=== PATIENT | female | born 1985 | race Caucasian/White ===

== ENCOUNTER 2020-04-09 16:44 | Outpatient (REF) | payer BC, SELFPAY | END 2020-04-09 16:45 | disposition home or self-care (01) | LOC: HO.LAB 16:44 | PROVIDERS: Visit Provider Internal Medicine | DX: Z20.822 Contact with and (suspected) exposure to COVID-19 (principal) | CPT/HCPCS: 36415; C9803; U0003 ==

== ENCOUNTER 2022-10-25 14:48 | Emergency (ER) | payer BC, SELFPAY ==
[2022-10-25] VITALS (8 sets, daily range): BP systolic 107–146; BP diastolic 66–82; PULSE 87–122; RESP 14–18; TEMP 36.4–36.8; O2SAT 95–99; BMI 30.5
--- NOTE | ~2022-10-25 | CT_ITS ---
EXAMINATION: CT HEAD WITHOUT CONTRAST (STROKE PROTOCOL) CLINICAL INFORMATION: Stroke protocol. Left-sided neck pain, dizziness, headache COMPARISON: None available. TECHNIQUE: Contiguous axial imaging was performed from the skull base to vertex without intravenous administration of contrast. This CT examination was performed using dose optimization techniques as appropriate, variously including the following: *Automated exposure control *Adjustment of mA and/or kV according to patient size (this includes techniques or standardized protocols for targeted exams where dose is matched to indication/reason for exam; i.e. extremities or head) *Use of iterative reconstruction technique DLP: 647 mGy-cm FINDINGS: No intracranial hemorrhage, extra-axial fluid collection, or midline shift is identified. [place]-white matter differentiation is preserved. The ventricles are within normal limits. Basal cisterns are within normal limits. Paranasal sinuses are clear. Mastoid air cells and middle ear cavities are clear. No acute calvarial fractures. CT/CT head for stroke IMPRESSION: No acute intracranial pathology. This critical result was discussed with Dr. Godfrey at 1543 hours on 10/25/2022. It was ascertained that the content and urgency of the report was understood at the time of direct communication.
--- NOTE | ~2022-10-25 | CT_ITS ---
EXAMINATION: CT ANGIOGRAM HEAD CT ANGIOGRAM NECK CLINICAL INFORMATION: Left-sided neck pain. Dizziness. Headache. COMPARISON: CT head from 10/25/2022. TECHNIQUE: Initial noncontrast farm marketer imaging of the head and neck was performed. Comparison is made with noncontrast head CT from earlier today. Test bolus sequences followed by intravenous administration 70 mL of Omnipaque 350. Helical imaging was performed in the axial plane from the aortic arch to the skull vertex. Delayed postcontrast imaging of the head was also performed. The data was processed at the electro mechanical technologist's workstation for generation of MIP sequences. Angled MIPs and volume rendered reformatted images were also generated at an offline 3D workstation. Stenoses are assessed in accordance with NASCET criteria unless otherwise indicated. This CT examination was performed using dose optimization techniques as appropriate, variously including the following: *Automated exposure control. *Adjustment of mA and/or kV according to patient size (this includes techniques or standardized protocols for targeted exams where dose is matched to indication/reason for exam; i.e. extremities or head). *Use of iterative reconstruction technique. DLP: 1423 mGy-cm FINDINGS: CT Head: There is no evidence of acute intracranial hemorrhage or edematous territorial infarction. Araiza-white matter differentiation is preserved. There is no abnormal attenuation within the brain parenchyma. The ventricles are normal in morphology and size. No evidence for obstructive hydrocephalus. No abnormal mass effect or midline shift. No extra-axial fluid collections. No pathologic intra-axial enhancement or regional oligemia. No acute soft tissue or osseous abnormalities. Mild mucosal thickening of the paranasal sinuses. Mild rightward nasal septal deviation with spurring. The mastoid air cells and middle ear cavities are clear. 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 CT Neck: There is a 1.1 cm slightly heterogeneous rounded lymph node in left level Ib. Bilateral level IIa lymph nodes measure up to 1.3 cm. No additional pathologically enlarged cervical lymphadenopathy. The thyroid gland and remaining cervical soft tissues are within normal limits. Mild multilevel degenerative spondyloarthropathy of the cervical spine. CT Upper Chest: The visualized lung apices and upper mediastinum are within normal limits. Neck CTA: Aortic Arch: Normal contour and caliber. Classic 3 vessel branching pattern of the aortic arch. Great Vessel Origins: No significant stenosis of the branch origins. Right Common Carotid Artery: No focal stenosis or occlusion. Cervical Right Internal Carotid Artery: Normal opacification without focal stenosis or occlusion. Left Common Carotid Artery: No focal stenosis or occlusion. Cervical Left Internal Carotid Artery: Normal opacification without focal stenosis or occlusion. Cervical Right Vertebral Artery: Co-dominant. No focal stenosis or occlusion. Cervical Left Vertebral Artery: Co-dominant. No focal stenosis or occlusion. Brain CTA: Intracranial Internal Carotid Arteries: No focal stenosis or occlusion. Right Anterior Cerebral Artery: Normal A1 segment. Normal opacification of the distal TIM segments. Left Anterior Cerebral Artery: Normal A1 segment. Normal opacification of the distal TIM segments. Anterior Communicating Artery: Normal. Right Middle Cerebral Artery: Normal M1 segment of the MCA without focal stenosis or occlusion. Normal arborization of the distal segments. Left Middle Cerebral Artery: Normal M1 segment of the MCA without focal stenosis or occlusion. Normal arborization of the distal segments. Right Vertebral Artery: Normal V4 segment. Normal opacification of the proximal segments of the posterior inferior cerebellar artery. Left Vertebral Artery: Normal V4 segment. Normal opacification of the proximal segments of the posterior inferior cerebellar artery. Basilar Artery: Normal without focal stenosis or occlusion. Normal appearance of the proximal superior cerebellar arteries. Right Posterior Cerebral Artery: The P1 segment is diminutive. origin of the [employer] with robust opacification of the posterior communicating artery. Normal opacification of the distal [employer]IDENT segments. Left Posterior Cerebral Artery: Normal P1 segment. Normal opacification of the distal [employer]IDENT segments. Normal opacification of the superior sagittal, straight, transverse, and sigmoid sinuses. CT/CT angio head neck stroke IMPRESSION: 1. No evidence of acute intracranial hemorrhage or edematous territorial infarction. 2. CTA of the head and neck without proximal occlusion or flow-limiting stenosis. 3. 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 4. Nonspecific mildly enlarged right level Ib lymph node. No additional pathologically enlarged lymphadenopathy. This critical result was discussed with Dr. Yolie Linn at 16:42 on 10/25/2022 and it was ascertained that the content and urgency of the report was understood at the time of direct communication.
--- NOTE | 2022-10-25 15:11 | ECG_ITS ---
Test Reason : DIZZY Blood Pressure : / mmHG Vent. Rate : 093 BPM Atrial Rate : 093 BPM P-R Int : 174 ms QRS Dur : 088 ms QT Int : 394 ms P-R-T Axes : 047 025 039 degrees QTc Int : 489 ms Normal sinus rhythm Prolonged QT RSR' or QR pattern in V1 suggests right ventricular conduction delay Abnormal ECG When compared with ECG of 23-MAY-2010 09:41, QT has lengthened Referred By: Yamila Godfrey Electronically Signed By:PASQUALE ANGELA
--- NOTE | 2022-10-25 15:13 | PC.NURSE ---
pt a&ox3, vss, sinus tachycardia on the lunchroom monitor. pt currently verbalizing 0/10 pain. pt transported via ems after having near syncopal episode while at work. pt states that she was sitting in her chair at work when she felt a pain in the side of her neck and felt as if she was going to pass out - pt lowered herself to the ground. denies headstrike or loc. pt currently c/o slight headache, dizziness, and palpitations. pt resting comfortably with the lights dimmed in no apparent distress. call sweet placed within reach. will continue to monitor.
--- NOTE | 2022-10-25 15:16 | PC.NURSE ---
RN contacted CAT scan in person to notify pt ready for CT and has patent IV access to left AC. provider aware.
[2022-10-25] MEDS: 0.9 % Sodium Chloride 1,000 ML 999 ML IVCONT (15:17)
--- NOTE | 2022-10-25 15:22 | PC.NURSE ---
IVF administered per provider order.
--- NOTE | 2022-10-25 15:25 | PC.NURSE ---
securing iv access- obtaining environmental monitoring specialist- abner weston taking pt to ct scan
--- NOTE | 2022-10-25 15:53 | ED_ITS ---
HPI - Dizziness General Chief Complaint: Syncope Stated Complaint: Weakness, near syncope per EMS Time Seen by Provider: 10/25/22 14:53 Source: patient Mode of arrival: EMS Limitations: no limitations History of Present Illness HPI Narrative: 37 yo female PMH of POTs not on medications did start a new diet. 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 This started at 130pm. She felt nauseated with bilateral blurred vision and numbness in L hand. The symptoms have resolved but it came and went x 3 since then. She has never had a stroke before or hx of blood vessel tearing or issues. 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 She has no neuro symptoms now but feels dizziness when turning quickly. MD elicited complaint: lightheadedness Onset (ago): hour(s) (130pm.) Timing: sudden onset Severity: moderate Description: lightheadedness Context: change in body position History of similar symptoms: No Exacerbating factors: movement/ambulation Relieving factors: nothing Associated symptoms: nausea and other (neck pain) Related Data Allergies Allergy/AdvReac Type Severity Reaction Status Date / Time haloperidol [HALOPERIDOL] Allergy Severe SEIZURES Verified 10/25/22 15:16 Review of Systems Review of Systems: Constitutional : No Fever, No Chills, No Fatigue ENT/Mouth : No sore throat, No Rhinorrhea Eyes: No Eye Pain, No Swelling, No Redness Cardiovascular : No Chest Pain, No SOB, No Dyspnea on Exertion Respiratory : No Cough, No Sputum Gastrointestinal : pos Nausea, No Vomiting, No Diarrhea, No abdominal Pain Genitourinary : No Dysuria, No Urinary Frequency, No Hematuria, Musculoskeletal : No joint pain, No Myalgias, No Joint Swelling Skin : No Skin Lesions, No rash Neuro : No Weakness, pos Numbness, pos Dizziness, no Headache Psych : No Anxiety/Panic, No Depression Heme/Lymph: No Bruising, No Bleeding,No Lymphadenopathy Endocrine : No Polyuria, No Polydipsia All other systems reviewed and are negative [facility] Past Medical History Attestation statement: The following information was validated with the patient. Medical History Anxiety Depression Postural orthostatic tachycardia syndrome Social History Social History Alcohol intake: current Alcohol intake frequency: holidays/special occasions only Smoked in Last 30 Days: No Use of substances other than those prescribed or required for medical reasons: No Patient : No Physical Exam Vital Signs: Vital Signs: Last Vital Signs Temp 97.5 F 10/25/22 15:07 Pulse 96 10/25/22 15:56 Resp 14 10/25/22 15:56 BP 131/76 10/25/22 15:56 Pulse Ox 98 10/25/22 15:56 O2 Del Method Room Air 10/25/22 15:56 BMI result Body Mass Index 30.5 Appearance: Alert. Oriented X3. No acute distress. Eyes: Pupils equal, round and reactive to light. ENT: Pharynx normal. Neck: Normal inspection. Neck supple. CVS: Normal heart rate and rhythm. Pulses normal. Respiratory: No respiratory distress. Breath sounds normal. Abdomen: Soft and nontender. Skin: Skin warm and dry. Normal skin color. Normal skin turgor. Extremities: No lower extremity edema. No calf ttp Neuro: Oriented X 3. No motor deficit. No sensory deficit. no drift, no past pointing NIH Stroke Scale Internal: Initial- Upon Arrival Level of Consciousness: Alert Level of Consciousness Questions: Answers both questions correctly Level of Consciousness Commands: Performs both tasks correctly Best Gaze: Normal Visual: No visual loss Facial Palsy: Normal Motor Arm (Right): No drift Motor Arm (Left): No drift Motor Leg (Right): No drift Motor Leg (Left): No drift Limb Ataxia: Absent Sensory: Normal Best Language: No aphasia Dysarthia: Normal Extinction and Inattention: No abnormality Score: 0 Medications Administered Generic Name Dose Route Start Last Admin Trade Name Freq PRN Reason Stop Dose Admin Sodium Chloride 1,000 mls @ 999 mls/hr 10/25/22 15:15 10/25/22 15:17 Ns IVCONT 10/25/22 16:15 999 mls/hr .Q1H1M KATHIE Administration Medical Decision Making Medical Decision Making [facility] Narrative: 37 yo female with hx of POTs here with c/o abrupt R sided neck pain and then dizziness L hand numbness on and off since 130pm without recent trauma or manipulation to the neck - she has no deficits now and NIH O my concern would be vert art dissection vs pain and near syncope - sent over for STAT CTA and labs. No indication for tPa at this time as NIH score is 0 and symptoms are non debilitating. Differential Diagnosis Differential Diagnoses: The differential diagnosis associated with the presentation includes vertebral artery dissection, near syncope, vertigo Admission/Observation Consideration of admission/observation: Escalation of care including admission/observation considered Lab Data MDM Lab Attestation statement: I reviewed the patient's lab results. Independent Interpretation I performed an independent interpretation of an: CT Scan (no ICH) Radiology Impression Discussion of test interpretation with radiology: I have reviewed the radiologist's reading. Independent Historian Clinical information obtained from an independent historian. History obtained from or confirmed by: EMS External Record Review External record reviewed: Office record Discharge Plan Discharge Clinical Impression: Dizziness Patient Disposition: Still a Patient
--- NOTE | 2022-10-25 15:54 | PC.NURSE ---
pt back from CT scan. resting in bed. c/o chest palp and dizziness- ecg in process. bp 131/76 +o2 on RA. no neuro changes. airway intact w/no impaired swallow.
[2022-10-25 16:17] LABS: MANUAL DIFF FLAG NO
[2022-10-25 16:19] LABS: Basophils Percent Auto 0.2 % (0-2); Eosinophils Percent Auto 0.1 % (0-4); Hematocrit 37.5 % (37.0-47.0); Hemoglobin 12.2 g/dl (12.0-16.0); Imm Gran Abs Auto 0.04 X10*3/uL (0.00-0.03); Imm Gran Pct Auto 0.3 % (0.0-0.4); Lymphocytes Percent Auto 7.9 % (20-40); Mean Corpuscular HGB Conc 32.5 g/dl (31.0-35.0); Mean Corpuscular Hemoglobin 28.5 pg (27.0-33.0); Mean Corpuscular Volume 87.6 fL (80.0-98.0); Monocytes Absolute Auto 0.8 X10*3/uL (0.1-1.2); Monocytes Percent Auto 6.9 % (2-11); Neutrophils Absolute Auto 10.4 x10*3/uL (2.0-8.3); Neutrophils Percent Auto 84.6 % (45-73); Platelet Count 268 X10*3/uL (160-400); Red Blood Count 4.28 X10*6/uL (4.20-5.50); White Blood Count 12.3 X10*3/uL (4.8-10.8)
[2022-10-25] MEDS: iohexoL 350 MG/ML 100 ML INFUS..BTL IV (16:20)
[2022-10-25 16:31] LABS: Prothrombin Time 11.9 SEC (11.1-13.3)
[2022-10-25 16:36] LABS: Alanine Aminotransferase 16 U/L (0-31); Albumin Level 3.9 g/dL (3.5-5.0); Alkaline Phosphatase 60 U/L (39-117); Anion Gap 9 (12-20); Aspartate Amino Transferase 18 U/L (5-31); Bilirubin Direct 0.1 mg/dL (0.0-0.5); Bilirubin Total 0.3 mg/dL (0.0-1.0); Blood Urea Nitrogen 10 mg/dL (9-16); Calcium 8.7 mg/dL (8.4-10.2); Carbon Dioxide 21 mmol/L (22-29); Chloride 110 mmol/L (96-108); Creatinine Clr Calc Pharmacy 103.8; Estimated Glomerular Filt Rate > 60; Glucose Random 109 mg/dL (60-115); Lipase 19 U/L (8-78); Magnesium 2.2 mg/dL (1.6-2.6); Potassium 4.2 mmol/L (3.3-5.1); Sodium 136 mmol/L (135-145); Total Protein 7.2 g/dL (6.5-8.0)
--- NOTE | 2022-10-25 16:37 | PC.NURSE ---
pt a&ox3, vs, nsr on the library monitor. pt verbalizing 5-9/10 pain - states that the pain level changes randomly, does not depend of movement or exertion. IVF still running. pt resting comfortably. call sweet placed within reach.
[2022-10-25 16:44] LABS: HCG Quantitative < 2 mIU/mL; Troponin-I High Sensitivity 4.6 ng/L (<3.5-17.0)
--- NOTE | 2022-10-25 17:06 | PC.NURSE ---
resting, calm, coop. no issues with swallowing. mild dizziness when resting. reports palpitations have resolved.piv remains intact. vs wnl for pt.
--- NOTE | 2022-10-25 18:03 | PC.NURSE ---
pt resting, no neuro deficits noted. VSS. orthos complete- see flowsheets. mild dizziness upon sitting/standing w/o any syncope.
--- NOTE | 2022-10-25 19:37 | PC.NURSE ---
Pt given water per request and MD joseph
== END 2022-10-25 20:08 | disposition home or self-care (01) ==
PROVIDERS: Emergency Medicine; Emergency Provider Emergency Medicine; PCP Family Medicine
DX: R55 Syncope and collapse (principal); R53.1 Weakness; R11.2 Nausea with vomiting, unspecified; R94.31 Abnormal electrocardiogram [ECG] [EKG]; M54.2 Cervicalgia; R51.9 Headache, unspecified; Z79.899 Other long term (current) drug therapy
CPT/HCPCS: 36415; 70450; 70496; 70498; 80048; 80076; 83690; 83735; 84484; 84702; 85025; 85610; 93005; 96360; 99284; 99285; Q9967